=== PATIENT | male | born 1980 | race Caucasian/White ===

== ENCOUNTER 2018-06-28 11:57 | Emergency (ER) | payer MEDICAID ==
[~2018-06-28] VITALS: Ht 170.2 cm; Wt 102.0 kg
[2018-06-28] MEDS ORDERED: IBUPROFEN 600MG TABLET PO ONE (14:45)
[2018-06-28 16:07] VITALS: BP 127/89
== END 2018-06-28 16:07 | disposition home or self-care (01) ==
LOC: ER 11:57
DX: S50.02XA Contusion of left elbow, initial encounter (principal); I10 Essential (primary) hypertension; W01.0XXA Fall on same level from slipping, tripping and stumbling without subsequent striking against object, initial encounter; Y93.89 Activity, other specified; Y92.018 Other place in single-family (private) house as the place of occurrence of the external cause
CPT/HCPCS: 73080; 99283